=== PATIENT | male | born 2000 | race African-American/Black ===

== ENCOUNTER 2022-11-14 18:01 | Emergency (ER) | payer OTHER ==
[~2022-11-14] VITALS: Ht 170.2 cm; Wt 85.3 kg
[2022-11-14 18:13] VITALS: BP 161/93; TEMP 98.6
== END 2022-11-14 19:22 | disposition home or self-care (01) ==
LOC: ED 18:01
DX: S00.83XA Contusion of other part of head, initial encounter (principal); Y04.2XXA Assault by strike against or bumped into by another person, initial encounter; Y92.89 Other specified places as the place of occurrence of the external cause
CPT/HCPCS: 99283